=== PATIENT | female | born 1985 | race Caucasian/White ===

== ENCOUNTER 2023-10-02 12:26 | Emergency (ER) | payer OTHER, SELFPAY ==
[2023-10-02 12:28] VITALS: BP 133/78
[2023-10-02 14:48] VITALS: BMI 23.0
[2023-10-02 15:12] LABS: % Eosinophils 0.7 % (0-6); % Immature Granulocytes 0.1 % (0-0.5); % Lymphocytes 24.6 % (20.5-51.1); % Monocytes 4.8 % (1.7-9.3); % Neutrophils 68.8 % (42.2-75.2); Absolute Basophils 0.1 10^3/uL (0-0.2); Absolute Eosinophils 0.1 10^3/uL (0-0.7); Absolute Lymphocytes 1.7 10^3/uL (1.2-3.4); Absolute Monocytes 0.3 10^3/uL (0.1-0.6); Absolute Neutrophils 4.6 10^3/uL (1.4-6.5); Hematocrit 38.4 % (37.0-47.0); Hemoglobin 13.8 g/dL (12.0-16.0); Mean Corp Hgb Conc. 35.9 g/dL (33.0-37.0); Mean Corpuscular Hgb 32.8 pg (27.0-31.0); Mean Corpuscular Volume 91.2 fL (81.0-99.0); Mean Platelet Volume 8.6 fL (7.4-10.4); Nucleated Red Blood Cells % 0 %; Platelet Count 211 10^3/uL (130-400); Red Blood Cell Count 4.21 10^6/uL (4.20-5.40); Red Cell Dist. Width 12.2 % (11.5-14.5); White Blood Cell Count 6.7 10^3/uL (4.8-10.8)
[2023-10-02] MEDS: TORADOL 15 MG IV (15:30)
[2023-10-02 15:54] LABS: ALT (SGPT) 76 U/L (0-35); AST (SGOT) 35 U/L (14-36); Albumin 4.3 g/dl (3.5-5.0); Alkaline Phosphatase 119 U/L (38-126); Blood Urea Nitrogen 17 mg/dl (7-17); Calcium 9.5 mg/dl (8.4-10.2); Carbon Dioxide 24 mmol/L (22-30); Chloride 103 mmol/L (98-107); Estimated Creatinine Clearance 85 ml/min; Glucose 96 mg/dl (70-99); HCG, Serum Qualitative Screen Negative; Potassium 4.2 mmol/L (3.5-5.1); Sodium 135 mmol/L (135-145); Total Bilirubin 0.7 mg/dl (0.2-1.3); Total Protein 6.6 g/dl (6.3-8.2); eGFR > 60.00
[2023-10-02 17:26] VITALS: BP 102/59
--- NOTE | 2023-10-02 17:51 | ED.GENMED ---
History of Present Illness
General
Chief Complaint: Anal/Rectal Problem
Source: patient
Exam Limitations: none
Time Seen by Provider: 10/02/23 13:20
History of Present Illness
History of Present Illness:
38-year-old female who presents with rectal pain. She states that started back in May. She initially thought it was hemorrhoidal. She has tried hemorrhoidal cream. In addition she saw her doctor and has had antibiotics. The first from
antibiotics did help but subsequently it has not helped. She does have a planned follow-up with her [facility]: Stools. She has had a colonoscopy in the past. She does have history of cystic fibrosis. She denies fevers or melena.
No hematochezia. No injury.
Past History
Past History
ED Past Medical History: Other (Cystic fibrosis, ADHD, anxiety, depression, rectocele)
ED Past Surgical History: Other (Rectocele repair)
Phy Exam
Physical Exam
Physical Exam:
CONSTITUTIONAL Vital signs reviewed, Patient alert and oriented to person, place and time. Well-appearing
HEAD atraumatic, normocephalic.
EYES eyelids normal to inspection, Extraocular muscles intact, Conjunctiva normal, Sclera normal.
NECK normal range of motion, Trachea midline, no jugular venous distention.
RESP no respiratory distress
BACK No obvious deformities
Abdomen nontender, no distention
Rectal exam no thrombosed hemorrhoids noted. Moderate pain at the 6 o'clock position during digital rectal exam. However there is some fluctuance at the 12 o'clock position. She is not really tender in this area however. There is no rectal or
perirectal redness. There is no blood
UPPER EXTREMITY Gross Range of motion normal, gross motor strength normal
LOWER EXTREMITY Gross range of motion normal, Gross motor strength normal
NEURO Speech normal, No focal motor deficits include, Wilda coma scale 15, Memory normal, Cranial Nerves intact to screening exam.
SKIN Skin warm, dry, and normal in color.
PSYCHIATRIC Patient oriented to person place and time, Normal affect.
Course
Orders/Labs/Results
Orders:
Orders
10/02/23 13:49
Test Result ONCE
10/02/23 13:56
CT Abd/pelvis W Iv Cont Urgent
Comment: Rectal contrast please
Reason For Exam: Rectal pain
10/02/23 14:38
Test Result ONCE
10/02/23 14:49
Complete Blood Count/With Diff Urgent
Comprehensive Metabolic Panel Urgent
HCG, Serum Qualitative Screen Urgent
10/02/23 15:11
Ketorolac [Toradol] 15 mg IV NOW STA
Abnormal Lab Results
10/02/23
14:49
MCH 32.8 H pg
(27.0-31.0)
ALT 76 H U/L
(0-35)
10/02/23 14:49
10/02/23 14:49
Vital Signs
Initial and Last Documented VS:
Initial Vital Signs
Temp Pulse Resp BP Pulse Ox
98.7 F 76 18 133/78 98
10/02/23 12:28 10/02/23 12:28 10/02/23 12:28 10/02/23 12:28 10/02/23 12:28
Last Documented Vital Signs
Temp Pulse Resp BP Pulse Ox
98.7 F 59 16 102/59 97
10/02/23 12:28 10/02/23 17:26 10/02/23 17:26 10/02/23 17:26 10/02/23 17:26
MDM/Problems Addressed
MDM/Problems Addressed:
Rectal pain
*Radiology
Radiology exam reviewed: radiology read reviewed
*Pulse Oximetry
Patient hypoxic: no
*Critical Care Note
Total Time (30-74mins, 75-104mins- exclusive of procedures): Not Applicable
Data Reviewed
Source: patient
Prescriptions/Medications Considered But Not Given:
Consider further antibiotics but white count normal and CT unremarkable.
Patient Management
Escalation/DeEscalation of care consider admission/obs:
Patient appears well and symptoms have been ongoing since May. Pain has persisted. She has follow-up with colorectal surgery upcoming. She has had 3 rounds of antibiotics do not feel further antibiotic usage is necessary. On reassessment there
is a fissure at the 6 o'clock position with a small cystic-like structure (small maybe 3mm). She has tenderness in this area. Will recommend topical treatment with lidocaine plus warm soaks. Patient is agreeable and will follow-up with colorectal
ED Attending Note
-
Portions of this chart may have been created with voice recognition software.� Occasional wrong word or��sound alike� substitutions may have occurred due to the inherent limitations of voice recognition software.
Discharge Plan
Departure
Referrals:
Cesilia Long MD [Family Provider] -
Interventions
Interventions:
*Risk Screen - Suicide Last Done: 10/02/23 12:28
*General Assessment Last Done: 10/02/23 12:28
*Neglect/Abuse Screening Last Done: 10/02/23 12:28
*ED COVID-19 Vaccine History Last Done: 10/02/23 13:46
ED-Skin Assessment Last Done: 10/02/23 13:46
Discharge Date and Time
Print Language: WELSH
[2023-10-02] MEDS: LIDOCAINE URO-JET 2% 1 SYRINGE TOPICAL (18:21)
[2023-10-02 18:56] VITALS: BP 105/68
== END 2023-10-02 19:06 | disposition home or self-care (01) ==
LOC: EMR 12:26
PROVIDERS: EMERGENCY PHYSICIAN Emergency Medicine; FAMILY PHYSICIAN Family Medicine
DX: K60.0 Acute anal fissure (principal); F90.9 Attention-deficit hyperactivity disorder, unspecified type; F41.9 Anxiety disorder, unspecified; F32.A Depression, unspecified; E84.9 Cystic fibrosis, unspecified
CPT/HCPCS: 99284; 96374; 74177; 80053; 84703; 85025; Q9967